=== PATIENT | female | born 2000 | race African-American/Black ===

== ENCOUNTER 2021-10-22 14:13 | Outpatient (CLI) | payer OTHER ==
--- NOTE | 2021-10-22 15:26 | MRI Report ---
PROCEDURE: Brain W/O INDICATIONS: TRANSIENT ALTERATION OF AWARENESS TECHNIQUE: Noncontrast axial T1 spin echo, axial T2 fast spin echo, sagittal and axial FLAIR, coronal T2 fast sp in echo, axial gradient echo, axial diffusion and ADC through the brain. COMPARISON: None. FINDINGS: Image quality: Excellent. CSF Spaces: Basal cisterns are patent. No extra-axial fluid collections. Ventricles are normal in size and shape. Brain: No intracranial masses or hemorrhage. Estrada/white matter interface is normal. Brainstem appe ars normal. Diffusion-weighted images demonstrate no acute ischemic insult. No chronic ischemic ins ults. Normal intravascular flow voids are present. Skull and face: Calvarium has normal marrow signal. Orbits appear normal. Sinuses: Sinuses and mastoids are clear. IMPRESSION: 1. Negative brain MRI. 2. No acute process. No recent infarct. Reviewed by: Shannon Bojorquez MD on 10/22/2021 3:24 PM PST Approved by: Shannon Bojorquez MD on 10/22/2021 3:24 PM PST Station ID: [id number]
== END 2021-10-22 14:14 | disposition home or self-care (01) ==
LOC: DI 14:13
PROVIDERS: ATTEND Student in an Organized Health Care Education/Training Program
DX: R40.4 Transient alteration of awareness (principal)